=== PATIENT | male | born 1935 | race Caucasian/White ===

== ENCOUNTER → 2017-01-22 | Outpatient (CLI) | payer OTHER ==
[~2017-01-22] VITALS: Ht 185.4 cm; Wt 108.9 kg
[~2017-01-22] MED LIST: ASPIR 8181 MG PO; AVODART0.5 MG PO; IBUPROFEN 200200 M1 PO; METAMUCIL PAC1 UDPKT PO; OMEGA 3 PO; PRINIVIL20 M1 PO; ZOCOR20 MG PO
--- NOTE | ~2017-01-22 | P ---
[facility] [place] [address] PROCEDURE REPORT Name: TYSHAWN BROOKS Room #: [facility]#: [id number] Admission: 01/22/17 Attend Phys: Dominic De La Vega MD Discharge: Date of : 39 Report #: [id number] THIS REPORT FOR: //name// Dominic De La Vega MD COPIES TO: Dominic De La Vega MD PROCEDURE PERFORMED: Colonoscopy DATE OF PROCEDURE: 01/22/2017 DICTATED BY: Dominic De La Vega MD REFERRING PHYSICIAN: Dominic De La Vega MD SCOPE(S) USED: [id number] Sn: [id number] POSTPROCEDURE DIAGNOSES: Colonic polyp(s), Benign rectal polyp(s) INDICATIONS: Routine screening-average risk EXTENT OF EXAMINATION: Ileum DESCRIPTION OF PROCEDURE: Informed consent was obtained with the benefits, risks, and alternatives to colonoscopy explained, including the risk of perforation, and the patient agreed to proceed. Patients last Colonoscopy was 01/22/2017. No contraindications were noted on physical exam. Monitored anesthesia care (MAC) was administered. Assessment of sedation: Complications- None. Cardiovascular- Stable. Orientation- Alert & Oriented. The quality of the prep was excellent. The procedure was performed with the patient in the left lateral decubitus position. Prior to the exam a digital exam was performed and it was unremarkable. The instrument was inserted to the ileum. The cecum was identified by the following: the ileocecal valve, the appendiceal orifice. In the rectum, a retroflex was performed. Estimated blood loss for the procedure was 5 ml. The patient tolerated the procedure well. There were no complications. The heart rate was normal. The oxygen saturation and skin color were normal. In the cecum, 5 diminutive polyps were seen. The polyps were not bleeding. The polyps were completely excised by cold forceps biopsy. The polyps were retrieved. In the distal ascending colon, a sessile polyp 5 mm by 6 mm was seen. The polyp was not bleeding. The polyp was completely excised by cold snare. The polyp was retrieved. In the proximal transverse colon, a sessile polyp 5 mm by 7 mm was seen. The polyp was not bleeding. The polyp was completely excised by cold snare. [facility] [address] [place] [address] PROCEDURE REPORT Name: TYSHAWN BROOKS Room #: [facility]#: [id number] Admission: 01/22/17 Attend Phys: Dominic De La Vega MD Discharge: Date of : 39 Report #: [id number] polyp was retrieved. In the mid-transverse colon, a sessile polyp 5 mm by 5 mm was seen. The polyp was not bleeding. The polyp was completely excised by cold snare. The polyp was retrieved. In the proximal sigmoid colon, a sessile polyp 5 mm by 7 mm was seen. The polyp was not bleeding. The polyp was completely excised by cold snare. The polyp was retrieved. In the mid sigmoid colon, a sessile polyp 5 mm by 5 mm was seen. The polyp was not bleeding. The polyp was completely excised by cold snare. The polyp was retrieved. In the distal sigmoid colon, a sessile polyp 5 mm by 12 mm was seen. The polyp was not bleeding. The polyp was completely excised by hot snare. The polyp was retrieved. In the rectum, a sessile polyp 5 mm by 5 mm was seen. The polyp was not bleeding. The polyp was completely excised by cold snare. The polyp was retrieved. THERAPEUTIC PROCEDURE(S) PERFORMED: Polypectomy Device: Cold forceps biopsy, Location: Cecum, Polypectomy Device: Cold snare, Location: Distal Ascending, Polypectomy Device: Cold snare, Location: Proximal Transverse, Polypectomy Device: Cold snare, Location: Mid Transverse, Polypectomy Device: Cold snare, Location: Proximal Sigmoid, Polypectomy Device: Cold snare, Location: Mid Sigmoid, Polypectomy Device: Hot snare, Location: Distal Sigmoid, Polypectomy Device: Cold snare, Location: Rectum SPECIMEN(S) OBTAINED: Container 1: cold forceps biopsy from Cecum, Container 2: cold snare from Distal Ascending, Container 3: cold snare from Proximal Transverse, Container 4: cold snare from Mid Transverse, Container 5: cold snare from Proximal Sigmoid at 40 cm, Container 6: cold snare from Mid Sigmoid at 30 cm, Container 7: hot snare from Distal Sigmoid at 20 cm, Container 8: cold snare from Rectum DISCHARGE INSTRUCTIONS: The patient was instructed to return to patient's primary care physician. Await biopsy results. He had 12 polyps that were removed. Consider a follow up colonoscopy in one year depending on the pathology. By: [id number] Dominic De La Vega MD /mike
--- NOTE | ~2017-01-22 | P ---
[facility] [place] [address] PROCEDURE REPORT Name: TYSHAWN BROOKS Room #: [facility]#: [id number] Admission: 01/22/17 Attend Phys: Dominic De La Vega MD Discharge: Date of : 39 Report #: [id number] THIS REPORT FOR: //name// Dominic De La Vega MD COPIES TO: Dominic De La Vega MD PROCEDURE PERFORMED: Colonoscopy DATE OF PROCEDURE: 01/22/2017 DICTATED BY: Dominic De La Vega MD REFERRING PHYSICIAN: Dominic De La Vega MD POSTPROCEDURE DIAGNOSES: Internal hemorrhoids, Diverticulosis without perforation or abscess without bleeding INDICATIONS: Routine screening-average risk EXTENT OF EXAMINATION: Cecum DESCRIPTION OF PROCEDURE: Informed consent was obtained with the benefits, risks, and alternatives to colonoscopy explained, including the risk of perforation, and the patient agreed to proceed. No contraindications were noted on physical exam. Propofol. Assessment of sedation: Complications- None. Cardiovascular- Stable. Orientation- Alert & Oriented. The quality of the prep was good. The procedure was performed with the patient in the left lateral decubitus position. Prior to the exam a digital exam was performed and it was unremarkable. The instrument was inserted to the mouth of the ileocecal valve. The cecum was identified by the following: the ileocecal valve, the appendiceal orifice. In the rectum, a retroflex was performed. Estimated blood loss for the procedure was 0 ml. The patient tolerated the procedure well. There were no complications. The heart rate was normal. The oxygen saturation and skin color were normal. In the rectum, a few small-size uncomplicated internal hemorrhoids were seen. The internal hemorrhoids were not bleeding. From proximal descending colon to distal sigmoid colon, multiple wide-mouth diverticula were present. The diverticula were not actively bleeding. No polyps were visualized. THERAPEUTIC PROCEDURE(S) PERFORMED: None SPECIMEN(S) OBTAINED: None [address] [place] [address] PROCEDURE REPORT Name: TYSHAWN BROOKS Room #: [facility]#: [id number] Admission: 01/22/17 Attend Phys: Dominic De La Vega MD Discharge: Date of : 39 Report #: [id number] DISCHARGE INSTRUCTIONS: The patient was instructed to return to patient's primary care physician. Follow up as needed. At this point in life. there is not likely to be benefit from routine follow up colonoscopy <ELECTRONICALLY SIGNED> By: Dominic De La Vega MD 01/23/17 1219 [id number] Dominic De La Vega MD /mike
== END ==
LOC: GI 06:55
DX: Z12.11 Encounter for screening for malignant neoplasm of colon (principal); K57.30 Diverticulosis of large intestine without perforation or abscess without bleeding; K64.8 Other hemorrhoids; I10 Essential (primary) hypertension; E78.5 Hyperlipidemia, unspecified; I73.9 Peripheral vascular disease, unspecified; Z87.891 Personal history of nicotine dependence; Z98.890 Other specified postprocedural states
CPT/HCPCS: 62110; 62900

== ENCOUNTER → 2020-10-11 | Outpatient (CLI) | payer OTHER | LOC: NUC 09-24 09:39 | PROVIDERS: ATTEND Family Medicine | DX: M81.0 Age-related osteoporosis without current pathological fracture (principal); M85.88 Other specified disorders of bone density and structure, other site ==